=== PATIENT | female | born 1975 | race Caucasian/White ===

== ENCOUNTER 2018-12-31 13:10 | Outpatient (CLI) | payer MEDICAID ==
[2018-12-31 13:46] LABS: WHITE BLOOD COUNT 8.1 10^3/ul (4.8-10.8)
[2018-12-31 13:46] LABS: ADD MAN DIFF? NO; BASOPHILS % 0.5 % (0.0-2.0); EOSINOPHILS # 0.2 10^3/ul (0.0-0.5); EOSINOPHILS % 1.8 % (0.0-7.0); HEMATOCRIT 37.6 % (37.0-47.0); LYMPHOCYTES # 1.8 10^3/ul (0.8-2.9); LYMPHOCYTES % 22.5 % (15.0-51.0); MEAN CORPUSCULAR HEMOGLOBIN 30.4 pg (29.0-33.0); MEAN CORPUSCULAR HGB CONC 34.6 g/dl (32.0-37.0); MEAN CORPUSCULAR VOLUME 88.1 fl (82.0-101.0); MEAN PLATELET VOLUME 10.6 fl (7.4-10.4); MONOCYTE # 0.5 10^3/ul (0.3-0.9); MONOCYTES % 5.8 % (0.0-11.0); NEUTROPHIL # 5.6 10^3/ul (1.6-7.5); NEUTROPHILS % 68.7 % (39.0-77.0); PLATELET COUNT 222 10^3/UL (140-415); RED BLOOD COUNT 4.27 10^6/ul (4.20-5.40); RED CELL DISTRIBUTION WIDTH 12.9 % (11.5-14.5)
[2018-12-31 14:07] LABS: ALANINE AMINOTRANSFERASE 20 IU/L (13-69); ALBUMIN 3.9 g/dl (3.3-4.9); ALBUMIN/GLOBULIN RATIO 1.02; ALKALINE PHOSPHATASE 228 IU/L (42-121); ANION GAP 10 (5-13); ASPARTATE AMINO TRANSFERASE 27 IU/L (15-46); BILIRUBIN,INDIRECT 0.5 mg/dl (0-1.1); BILIRUBIN,TOTAL 0.5 mg/dl (0.2-1.3); BLOOD UREA NITROGEN 12 mg/dl (7-20); CALCIUM 9.7 mg/dl (8.4-10.2); CARBON DIOXIDE 22 mmol/L (21-31); CHLORIDE 105 mmol/L (97-110); CREATININE 0.63 mg/dl (0.44-1.00); Estimated GFR > 60 mL/min (>60); GLUCOSE 81 mg/dl (70-220); POTASSIUM 4.1 mmol/L (3.5-5.1); SODIUM 137 mmol/L (135-144); TOTAL PROTEIN 7.7 g/dl (6.1-8.1); URIC ACID 5.7 mg/dl (3.1-7.9)
[2018-12-31 14:11] LABS: INR 0.89; PROTIME 12.1 Sec (11.9-14.9); PT RATIO 0.9
[2018-12-31 14:12] LABS: PARTIAL THROMBOPLASTIN TIME 28.3 Sec (23.0-35.0)
[2018-12-31 14:22] LABS: ADD UMIC YES; UR ASCORBIC ACID NEGATIVE (NEGATIVE); UR BACTERIA FEW /HPF (NONE SEEN); UR BILIRUBIN (Dip) NEGATIVE (NEGATIVE); UR BLOOD (Dip) NEGATIVE (NEGATIVE); UR CLARITY CLOUDY (CLEAR); UR COLOR YELLOW (YELLOW); UR GLUCOSE (Dip) NEGATIVE (NEGATIVE); UR KETONES (Dip) NEGATIVE (NEGATIVE); UR LEUKOCYTE ESTERASE (Dip) 3+ Leu/ul (NEGATIVE); UR NITRITE (Dip) NEGATIVE (NEGATIVE); UR RBC 7 /HPF (0-5); UR SPECIFIC GRAVITY (Dip) 1.021 (1.003-1.030); UR SQUAMOUS EPITHELIAL CELL MODERATE /HPF (FEW); UR TOTAL PROTEIN (Dip) NEGATIVE (NEGATIVE); UR UROBILINOGEN (Dip) NEGATIVE (NEGATIVE); UR WBC 22 /HPF (0-5)
== END 2018-12-31 15:30 | disposition home or self-care (01) ==
LOC: OBT 13:10 → L-D 13:11 → OBT 15:30
DX: O60.03 Preterm labor without delivery, third trimester (principal); O09.523 Supervision of elderly multigravida, third trimester; O13.9 Gestational [pregnancy-induced] hypertension without significant proteinuria, unspecified trimester; Z3A.33 33 weeks gestation of pregnancy
CPT/HCPCS: 76818; 80053; 81001; 84560; 85025; 85384; 85610; 85730

== ENCOUNTER 2019-01-04 12:39 | Inpatient (IN) | payer MEDICAID ==
[2019-01-04] MEDS: LACTATED RINGER'S 1,000 ML IV ×2 (14:54→22:17)
[2019-01-04] MEDS ORDERED: LABETALOL HCL 20MG INJ IV (15:00)
[2019-01-04 15:01] LABS: ADD UMIC YES; UR ASCORBIC ACID NEGATIVE (NEGATIVE); UR BACTERIA FEW /HPF (NONE SEEN); UR BILIRUBIN (Dip) NEGATIVE (NEGATIVE); UR BLOOD (Dip) NEGATIVE (NEGATIVE); UR CLARITY SLIGHTLY CLOUDY (CLEAR); UR COLOR YELLOW (YELLOW); UR GLUCOSE (Dip) NEGATIVE (NEGATIVE); UR KETONES (Dip) NEGATIVE (NEGATIVE); UR LEUKOCYTE ESTERASE (Dip) 3+ Leu/ul (NEGATIVE); UR NITRITE (Dip) NEGATIVE (NEGATIVE); UR RBC 6 /HPF (0-5); UR SQUAMOUS EPITHELIAL CELL MANY /HPF (FEW); UR TOTAL PROTEIN (Dip) NEGATIVE (NEGATIVE); UR UROBILINOGEN (Dip) NEGATIVE (NEGATIVE); UR WBC 5 /HPF (0-5)
[2019-01-04] MEDS: MAGNESIUM SULFATE 4 GM/100 ML 100 ML IV (15:05)
[2019-01-04 15:07] LABS: ADD MAN DIFF? NO
[2019-01-04 15:13] LABS: WHITE BLOOD COUNT 7.9 10^3/ul (4.8-10.8)
[2019-01-04 15:13] LABS: BASOPHILS % 0.5 % (0.0-2.0); EOSINOPHILS # 0.2 10^3/ul (0.0-0.5); EOSINOPHILS % 2.5 % (0.0-7.0); HEMATOCRIT 36.4 % (37.0-47.0); HEMOGLOBIN 12.3 g/dl (12.0-16.0); LYMPHOCYTES % 24.8 % (15.0-51.0); MEAN CORPUSCULAR HEMOGLOBIN 30.7 pg (29.0-33.0); MEAN CORPUSCULAR HGB CONC 33.8 g/dl (32.0-37.0); MEAN CORPUSCULAR VOLUME 90.8 fl (82.0-101.0); MEAN PLATELET VOLUME 11.4 fl (7.4-10.4); MONOCYTE # 0.5 10^3/ul (0.3-0.9); MONOCYTES % 5.8 % (0.0-11.0); NEUTROPHIL # 5.2 10^3/ul (1.6-7.5); NEUTROPHILS % 65.3 % (39.0-77.0); PLATELET COUNT 208 10^3/UL (140-415); RED BLOOD COUNT 4.01 10^6/ul (4.20-5.40)
[2019-01-04 15:33] LABS: MAGNESIUM 1.8 mg/dl (1.7-2.5)
[2019-01-04 15:41] LABS: URIC ACID 4.9 mg/dl (3.1-7.9)
[2019-01-04] MEDS: MAGNESIUM SULFATE 20 GM/500 ML 500 ML IV (15:52)
[2019-01-04] MEDS: BETAMET NA PHOS/AC(6 MG/ML) 2 ML INJ SYG IM (16:12)
[2019-01-04 17:19] LABS: INR 0.85; PROTIME 11.7 Sec (11.9-14.9); PT RATIO 0.9
[2019-01-04 17:20] LABS: PARTIAL THROMBOPLASTIN TIME 27.5 Sec (23.0-35.0)
[2019-01-04 17:22] LABS: ALANINE AMINOTRANSFERASE 26 IU/L (13-69); ALBUMIN 3.3 g/dl (3.3-4.9); ALKALINE PHOSPHATASE 197 IU/L (42-121); ANION GAP 9 (5-13); ASPARTATE AMINO TRANSFERASE 24 IU/L (15-46); BILIRUBIN,INDIRECT 0.3 mg/dl (0-1.1); BILIRUBIN,TOTAL 0.3 mg/dl (0.2-1.3); BLOOD UREA NITROGEN 12 mg/dl (7-20); CALCIUM 9.4 mg/dl (8.4-10.2); CARBON DIOXIDE 22 mmol/L (21-31); CHLORIDE 108 mmol/L (97-110); CREATININE 0.49 mg/dl (0.44-1.00); Estimated GFR > 60 mL/min (>60); GLUCOSE 68 mg/dl (70-220); POTASSIUM 4.3 mmol/L (3.5-5.1); SODIUM 139 mmol/L (135-144); TOTAL PROTEIN 6.3 g/dl (6.1-8.1)
[2019-01-05] MEDS: MAGNESIUM SULFATE 20 GM/500 ML 500 ML IV ×2 (00:12→11:27)
[2019-01-05 01:24] LABS: MAGNESIUM 5.3 mg/dl (1.7-2.5)
[2019-01-05 01:43] LABS: HEMOGLOBIN A1C 5.4 % (0-5.9)
[2019-01-05 06:27] LABS: ADD MAN DIFF? NO
[2019-01-05 06:41] LABS: BASOPHILS % 0.3 % (0.0-2.0); HEMATOCRIT 35.5 % (37.0-47.0); HEMOGLOBIN 12.1 g/dl (12.0-16.0); LYMPHOCYTES # 1.1 10^3/ul (0.8-2.9); LYMPHOCYTES % 14.6 % (15.0-51.0); MEAN CORPUSCULAR HEMOGLOBIN 30.9 pg (29.0-33.0); MEAN CORPUSCULAR HGB CONC 34.1 g/dl (32.0-37.0); MEAN CORPUSCULAR VOLUME 90.8 fl (82.0-101.0); MEAN PLATELET VOLUME 10.9 fl (7.4-10.4); MONOCYTE # 0.3 10^3/ul (0.3-0.9); MONOCYTES % 3.6 % (0.0-11.0); NEUTROPHIL # 6.1 10^3/ul (1.6-7.5); NEUTROPHILS % 80.3 % (39.0-77.0); PLATELET COUNT 222 10^3/UL (140-415); RED BLOOD COUNT 3.91 10^6/ul (4.20-5.40); RED CELL DISTRIBUTION WIDTH 12.9 % (11.5-14.5)
[2019-01-05 06:41] LABS: WHITE BLOOD COUNT 7.5 10^3/ul (4.8-10.8)
[2019-01-05 06:45] LABS: ADD UMIC YES; UR ASCORBIC ACID NEGATIVE (NEGATIVE); UR BACTERIA FEW /HPF (NONE SEEN); UR BILIRUBIN (Dip) NEGATIVE (NEGATIVE); UR BLOOD (Dip) 1+ mg/dL (NEGATIVE); UR CLARITY CLEAR (CLEAR); UR COLOR STRAW (YELLOW); UR GLUCOSE (Dip) 1+ mg/dL (NEGATIVE); UR KETONES (Dip) TRACE mg/dL (NEGATIVE); UR LEUKOCYTE ESTERASE (Dip) 1+ Leu/ul (NEGATIVE); UR MUCUS FEW /HPF (NONE SEEN); UR NITRITE (Dip) NEGATIVE (NEGATIVE); UR RBC 1 /HPF (0-5); UR SPECIFIC GRAVITY (Dip) 1.009 (1.003-1.030); UR SQUAMOUS EPITHELIAL CELL FEW /HPF (FEW); UR TOTAL PROTEIN (Dip) NEGATIVE (NEGATIVE); UR UROBILINOGEN (Dip) NEGATIVE (NEGATIVE); UR WBC 2 /HPF (0-5)
[2019-01-05 06:56] LABS: PARTIAL THROMBOPLASTIN TIME 25.6 Sec (23.0-35.0)
[2019-01-05 07:12] LABS: ALANINE AMINOTRANSFERASE 21 IU/L (13-69); ALBUMIN 3.5 g/dl (3.3-4.9); ALBUMIN/GLOBULIN RATIO 1.02; ALKALINE PHOSPHATASE 225 IU/L (42-121); ANION GAP 10 (5-13); ASPARTATE AMINO TRANSFERASE 24 IU/L (15-46); BILIRUBIN,INDIRECT 0.3 mg/dl (0-1.1); BILIRUBIN,TOTAL 0.3 mg/dl (0.2-1.3); BLOOD UREA NITROGEN 10 mg/dl (7-20); CALCIUM 7.3 mg/dl (8.4-10.2); CARBON DIOXIDE 22 mmol/L (21-31); CHLORIDE 104 mmol/L (97-110); CREATININE 0.71 mg/dl (0.44-1.00); Estimated GFR > 60 mL/min (>60); GLUCOSE 152 mg/dl (70-220); SODIUM 136 mmol/L (135-144); TOTAL PROTEIN 6.9 g/dl (6.1-8.1); URIC ACID 5.9 mg/dl (3.1-7.9)
[2019-01-05 07:13] LABS: MAGNESIUM 5.6 mg/dl (1.7-2.5)
[2019-01-05] MEDS: ACETAMINOPHEN 325 MG TAB PO (09:47)
[2019-01-05] MEDS: FERROUS SULFATE (EC) 325 MG TAB PO (09:47)
[2019-01-05] MEDS: PRENATAL VITAMIN PO (09:47)
[2019-01-05] MEDS: LACTATED RINGER'S 1,000 ML IV (11:27)
[2019-01-05 13:06] LABS: MAGNESIUM 5.1 mg/dl (1.7-2.5)
[2019-01-05] MEDS: BETAMET NA PHOS/AC(6 MG/ML) 2 ML INJ SYG IM (16:03)
[2019-01-05] MEDS ORDERED: DEXTROSE 50% 50 ML SYRINGE IV ×2 (21:00)
[2019-01-05] MEDS ORDERED: GLUCAGON 1 MG INJ IM (21:00)
[2019-01-05] MEDS ORDERED: GLUCOSE GEL 15 GRAM TUBE BUCCAL (21:00)
[2019-01-05] MEDS ORDERED: GLUCOSE GEL 15 GRAM TUBE PO ×2 (21:00)
[2019-01-05] MEDS: INSULIN REGULAR, HUMAN 100 UNIT/1 ML 3ML VIAL SC (21:22)
[2019-01-06] MEDS: FERROUS SULFATE (EC) 325 MG TAB PO (09:55)
[2019-01-06] MEDS: PRENATAL VITAMIN PO (09:55)
[2019-01-06 19:21] LABS: COLLECTION PERIOD 24 hrs
[2019-01-06 19:54] LABS: COLLECTION PERIOD 24 hrs; SCRET 0.71 mg/dl (0.44-1.00)
[2019-01-06 19:55] LABS: CREATININE,URINE RANDOM 52.52 mg/dl (20-320); VOLUME 2200 ml/24hrs; VOLUME 2200 mls
== END 2019-01-06 22:00 | disposition home or self-care (01) | DRG 833 ==
LOC: OBT 12:39 → L-D 12:42 → OBT 12:50 → L-D 12:50
DX: O13.3 Gestational [pregnancy-induced] hypertension without significant proteinuria, third trimester (principal); O36.5930 Maternal care for other known or suspected poor fetal growth, third trimester, not applicable or unspecified; O09.523 Supervision of elderly multigravida, third trimester; Z3A.33 33 weeks gestation of pregnancy
CPT/HCPCS: 76815; 76817; 76818; 80053; 81001; 82575; 82962; 83036; 83735; 84156; 84560; 85025; 85384; 85610; 85730; 86850; 86900; 86901

== ENCOUNTER 2019-01-21 13:00 | Outpatient (CLI) | payer MEDICAID ==
[2019-01-21 14:09] LABS: ADD MAN DIFF? NO
[2019-01-21 14:11] LABS: BASOPHILS % 0.4 % (0.0-2.0); EOSINOPHILS # 0.2 10^3/ul (0.0-0.5); EOSINOPHILS % 2.6 % (0.0-7.0); HEMATOCRIT 37.5 % (37.0-47.0); HEMOGLOBIN 12.7 g/dl (12.0-16.0); LYMPHOCYTES # 2.2 10^3/ul (0.8-2.9); LYMPHOCYTES % 29.6 % (15.0-51.0); MEAN CORPUSCULAR HEMOGLOBIN 31.1 pg (29.0-33.0); MEAN CORPUSCULAR HGB CONC 33.9 g/dl (32.0-37.0); MEAN CORPUSCULAR VOLUME 91.7 fl (82.0-101.0); MEAN PLATELET VOLUME 10.6 fl (7.4-10.4); MONOCYTE # 0.5 10^3/ul (0.3-0.9); MONOCYTES % 7.3 % (0.0-11.0); NEUTROPHIL # 4.3 10^3/ul (1.6-7.5); NEUTROPHILS % 59.3 % (39.0-77.0); PLATELET COUNT 185 10^3/UL (140-415); RED BLOOD COUNT 4.09 10^6/ul (4.20-5.40); RED CELL DISTRIBUTION WIDTH 12.8 % (11.5-14.5)
[2019-01-21 14:11] LABS: WHITE BLOOD COUNT 7.3 10^3/ul (4.8-10.8)
[2019-01-21 14:28] LABS: ALANINE AMINOTRANSFERASE 22 IU/L (13-69); ALBUMIN 3.5 g/dl (3.3-4.9); ALBUMIN/GLOBULIN RATIO 1.16; ALKALINE PHOSPHATASE 229 IU/L (42-121); ANION GAP 9 (5-13); ASPARTATE AMINO TRANSFERASE 19 IU/L (15-46); BILIRUBIN,INDIRECT 0.3 mg/dl (0-1.1); BILIRUBIN,TOTAL 0.3 mg/dl (0.2-1.3); BLOOD UREA NITROGEN 14 mg/dl (7-20); CALCIUM 9.1 mg/dl (8.4-10.2); CARBON DIOXIDE 23 mmol/L (21-31); CHLORIDE 105 mmol/L (97-110); CREATININE 0.64 mg/dl (0.44-1.00); Estimated GFR > 60 mL/min (>60); GLUCOSE 80 mg/dl (70-220); POTASSIUM 4.1 mmol/L (3.5-5.1); SODIUM 137 mmol/L (135-144); TOTAL PROTEIN 6.5 g/dl (6.1-8.1); URIC ACID 6.1 mg/dl (3.1-7.9)
[2019-01-21 14:30] LABS: ADD UMIC YES; UR ASCORBIC ACID NEGATIVE (NEGATIVE); UR BACTERIA FEW /HPF (NONE SEEN); UR BILIRUBIN (Dip) NEGATIVE (NEGATIVE); UR BLOOD (Dip) NEGATIVE (NEGATIVE); UR CLARITY SLIGHTLY CLOUDY (CLEAR); UR COLOR YELLOW (YELLOW); UR GLUCOSE (Dip) NEGATIVE (NEGATIVE); UR KETONES (Dip) NEGATIVE (NEGATIVE); UR LEUKOCYTE ESTERASE (Dip) 3+ Leu/ul (NEGATIVE); UR MUCUS FEW /HPF (NONE SEEN); UR NITRITE (Dip) NEGATIVE (NEGATIVE); UR RBC 4 /HPF (0-5); UR SPECIFIC GRAVITY (Dip) 1.023 (1.003-1.030); UR SQUAMOUS EPITHELIAL CELL FEW /HPF (FEW); UR TOTAL PROTEIN (Dip) NEGATIVE (NEGATIVE); UR UROBILINOGEN (Dip) NEGATIVE (NEGATIVE); UR WBC 11 /HPF (0-5)
[2019-01-21 14:31] LABS: INR 0.84; PROTIME 11.6 Sec (11.9-14.9); PT RATIO 0.9
[2019-01-21 14:32] LABS: PARTIAL THROMBOPLASTIN TIME 26.1 Sec (23.0-35.0)
== END 2019-01-21 15:35 | disposition home or self-care (01) ==
LOC: OBT 13:00 → L-D 13:00 → OBT 15:35
DX: O24.419 Gestational diabetes mellitus in pregnancy, unspecified control (principal); O13.3 Gestational [pregnancy-induced] hypertension without significant proteinuria, third trimester; O36.5930 Maternal care for other known or suspected poor fetal growth, third trimester, not applicable or unspecified; O23.43 Unspecified infection of urinary tract in pregnancy, third trimester; O09.523 Supervision of elderly multigravida, third trimester; Z3A.36 36 weeks gestation of pregnancy
CPT/HCPCS: 76818; 80053; 81001; 84560; 85025; 85384; 85610; 85730; 87086

== ENCOUNTER 2019-01-27 14:10 | Inpatient (IN) | payer MEDICAID ==
[~2019-01-27 14:10] MED LIST: EPHEDrine 25 MG/5 ML SYG; OXYTOCIN 30 UNITS/LR 500 ML BAG IV; PHENYLephrine (100 MCG/ML) 10ML SYG
[2019-01-27 15:53] LABS: ADD MAN DIFF? NO
[2019-01-27 15:54] LABS: BASOPHILS % 0.3 % (0.0-2.0); EOSINOPHILS # 0.1 10^3/ul (0.0-0.5); EOSINOPHILS % 1.5 % (0.0-7.0); HEMATOCRIT 36.9 % (37.0-47.0); HEMOGLOBIN 12.5 g/dl (12.0-16.0); LYMPHOCYTES # 1.8 10^3/ul (0.8-2.9); LYMPHOCYTES % 25.1 % (15.0-51.0); MEAN CORPUSCULAR HEMOGLOBIN 30.9 pg (29.0-33.0); MEAN CORPUSCULAR HGB CONC 33.9 g/dl (32.0-37.0); MEAN CORPUSCULAR VOLUME 91.3 fl (82.0-101.0); MEAN PLATELET VOLUME 10.6 fl (7.4-10.4); MONOCYTE # 0.5 10^3/ul (0.3-0.9); MONOCYTES % 6.5 % (0.0-11.0); NEUTROPHIL # 4.8 10^3/ul (1.6-7.5); NEUTROPHILS % 65.9 % (39.0-77.0); PLATELET COUNT 168 10^3/UL (140-415); RED BLOOD COUNT 4.04 10^6/ul (4.20-5.40); RED CELL DISTRIBUTION WIDTH 13.2 % (11.5-14.5)
[2019-01-27 15:54] LABS: WHITE BLOOD COUNT 7.3 10^3/ul (4.8-10.8)
[2019-01-27 16:12] LABS: ALANINE AMINOTRANSFERASE 29 IU/L (13-69); ALBUMIN 3.2 g/dl (3.3-4.9); ALBUMIN/GLOBULIN RATIO 0.96; ALKALINE PHOSPHATASE 226 IU/L (42-121); ANION GAP 4 (5-13); ASPARTATE AMINO TRANSFERASE 21 IU/L (15-46); BILIRUBIN,INDIRECT 0.3 mg/dl (0-1.1); BILIRUBIN,TOTAL 0.3 mg/dl (0.2-1.3); BLOOD UREA NITROGEN 15 mg/dl (7-20); CALCIUM 9.5 mg/dl (8.4-10.2); CARBON DIOXIDE 24 mmol/L (21-31); CHLORIDE 107 mmol/L (97-110); CREATININE 0.79 mg/dl (0.44-1.00); Estimated GFR > 60 mL/min (>60); GLUCOSE 96 mg/dl (70-220); POTASSIUM 4.3 mmol/L (3.5-5.1); SODIUM 135 mmol/L (135-144); TOTAL PROTEIN 6.5 g/dl (6.1-8.1); URIC ACID 6.3 mg/dl (3.1-7.9)
[2019-01-27 16:14] LABS: INR 0.88; PT RATIO 0.9
[2019-01-27 16:15] LABS: PARTIAL THROMBOPLASTIN TIME 26.7 Sec (23.0-35.0)
[2019-01-27 16:17] LABS: ADD UMIC YES; UR ASCORBIC ACID NEGATIVE (NEGATIVE); UR BACTERIA FEW /HPF (NONE SEEN); UR BILIRUBIN (Dip) NEGATIVE (NEGATIVE); UR BLOOD (Dip) NEGATIVE (NEGATIVE); UR CLARITY SLIGHTLY CLOUDY (CLEAR); UR COLOR YELLOW (YELLOW); UR GLUCOSE (Dip) NEGATIVE (NEGATIVE); UR KETONES (Dip) NEGATIVE (NEGATIVE); UR LEUKOCYTE ESTERASE (Dip) 3+ Leu/ul (NEGATIVE); UR MUCUS MODERATE /HPF (NONE SEEN); UR NITRITE (Dip) NEGATIVE (NEGATIVE); UR RBC 3 /HPF (0-5); UR SPECIFIC GRAVITY (Dip) 1.025 (1.003-1.030); UR SQUAMOUS EPITHELIAL CELL FEW /HPF (FEW); UR TOTAL PROTEIN (Dip) NEGATIVE (NEGATIVE); UR UROBILINOGEN (Dip) 1+ mg/dL (NEGATIVE); UR WBC 11 /HPF (0-5)
[2019-01-27] MEDS ORDERED: MAGNESIUM SULFATE 20 GM/500 ML 500 ML IV (18:05)
[2019-01-27] MEDS ORDERED: MAGNESIUM SULFATE 4 GM/100 ML 100 ML (18:05)
[2019-01-27] MEDS ORDERED: MAGNESIUM SULFATE 4 GM/100 ML 100 ML IVPB (18:15)
[2019-01-27] MEDS: LACTATED RINGER'S 1,000 ML IV (18:21)
[2019-01-27] MEDS ORDERED: LABETALOL HCL 20MG INJ (18:25)
[2019-01-27] MEDS: LABETALOL HCL 20MG INJ IV (18:29)
[2019-01-27] MEDS ORDERED: CEFAZOLIN 2 GM/50 ML (PMX) 50 ML IVPB (18:30)
[2019-01-27] MEDS ORDERED: OXYTOCIN 30 UNITS/LR 500 ML IV ×2 (18:30)
[2019-01-27] MEDS ORDERED: MAGNESIUM SULFATE 2 GM/50 ML 50 ML IVPB (18:30)
[2019-01-27] MEDS ORDERED: hydrALAzine 20 MG INJ IV (18:30)
[2019-01-27] MEDS ORDERED: CARBOPROST 250 MCG INJ IM (18:30)
[2019-01-27] MEDS ORDERED: LABETALOL HCL 20MG INJ IV ×2 (18:30)
[2019-01-27] MEDS ORDERED: MISOPROSTOL 200 MCG TAB PR (18:30)
[2019-01-27] MEDS ORDERED: METHYLERGONOVINE 0.2 MG INJ IM (18:30)
[2019-01-27] MEDS: MAGNESIUM SULFATE 4 GM/100 ML 100 ML IV (18:35)
[2019-01-27] MEDS: MAGNESIUM SULFATE 20 GM/500 ML 500 ML IV (18:38)
[2019-01-27 18:53] LABS: GLUCOSE 72 mg/dl (70-220)
[2019-01-27 18:58] LABS: HEPATITIS B SURFACE ANTIGEN NEGATIVE (NEGATIVE)
[2019-01-27] MEDS ORDERED: morphine SULFATE/PF (10 MG/10 ML) INJ (21:11)
[2019-01-27] MEDS ORDERED: METOCLOPRAMIDE 10 MG INJ IV (21:30)
[2019-01-27] MEDS ORDERED: DIPHENHYDRAMINE 50 MG INJ IV ×2 (21:30)
[2019-01-27] MEDS ORDERED: NALOXONE (0.4 MG/ML) INJ IV (21:30)
[2019-01-27] MEDS ORDERED: FENTAnyl 50 MCG/ML VIAL IV ×3 (21:30)
[2019-01-27] MEDS ORDERED: ALBUTEROL 0.083% (NEB) 2.5 MG/3 ML AMP HHN (21:30)
[2019-01-27] MEDS ORDERED: KETOROLAC 30 MG INJ IV ×2 (21:30)
[2019-01-27] MEDS ORDERED: ONDANSETRON 4 MG INJ IV ×2 (21:30)
[2019-01-27] MEDS ORDERED: HYDROmorphONE 1 MG/5 ML IV SYRINGE IV ×3 (21:30)
[2019-01-27] MEDS ORDERED: HYDROmorphONE 0.5 MG/0.5 ML SYG IV ×2 (21:30)
[2019-01-27] MEDS: CITRIC ACID/NA CITRATE 30 ML CUP PO (22:09)
[2019-01-27] MEDS: METOCLOPRAMIDE 10 MG INJ IV (22:09)
[2019-01-27] MEDS: ONDANSETRON 4 MG INJ IV (22:10)
[2019-01-28 01:10] LABS: MAGNESIUM 3.5 mg/dl (1.7-2.5)
[2019-01-28] MEDS ORDERED: OXYTOCIN 30 UNITS/LR 500 ML IV (01:30)
[2019-01-28] MEDS ORDERED: CARBOPROST 250 MCG INJ IM (01:30)
[2019-01-28] MEDS ORDERED: MAGNESIUM SULFATE 4 GM/100 ML 100 ML IV (01:30)
[2019-01-28] MEDS ORDERED: NACL 0.9% 3 ML SYG IV ×2 (01:30)
[2019-01-28] MEDS ORDERED: CA GLUCONATE (GM) 10% 10ML INJ IV (01:30)
[2019-01-28] MEDS ORDERED: LANOLIN HPA 1 PKT TOP (01:30)
[2019-01-28] MEDS ORDERED: MISOPROSTOL 200 MCG TAB PR (01:30)
[2019-01-28] MEDS: MAGNESIUM SULFATE 20 GM/500 ML 500 ML IV ×3 (01:51→17:11)
[2019-01-28] MEDS: OXYTOCIN 30 UNITS/LR 500 ML IV (02:20)
[2019-01-28] MEDS: IBUPROFEN 600 MG TAB PO (02:20)
[2019-01-28] MEDS ORDERED: DIPHENHYDRAMINE 50 MG INJ IV ×2 (05:30→09:00)
[2019-01-28] MEDS ORDERED: ONDANSETRON 4 MG INJ IV ×2 (05:30→09:00)
[2019-01-28 07:51] LABS: MAGNESIUM 5.5 mg/dl (1.7-2.5)
[2019-01-28] MEDS ORDERED: HYDROmorphONE 0.5 MG/0.5 ML SYG IV ×2 (09:00)
[2019-01-28] MEDS ORDERED: ZOLPIDEM 5 MG TAB PO (09:00)
[2019-01-28] MEDS ORDERED: KETOROLAC 30 MG INJ IV (09:00)
[2019-01-28] MEDS ORDERED: NALOXONE (0.4 MG/ML) INJ IV (09:00)
[2019-01-28 12:03] LABS: ADD MAN DIFF? NO
[2019-01-28 12:07] LABS: WHITE BLOOD COUNT 7.9 10^3/ul (4.8-10.8)
[2019-01-28 12:07] LABS: EOSINOPHILS % 0.8 % (0.0-7.0); HEMATOCRIT 34.7 % (37.0-47.0); HEMOGLOBIN 11.9 g/dl (12.0-16.0); LYMPHOCYTES % 16.4 % (15.0-51.0); MEAN CORPUSCULAR HEMOGLOBIN 31.4 pg (29.0-33.0); MEAN CORPUSCULAR HGB CONC 34.3 g/dl (32.0-37.0); MEAN CORPUSCULAR VOLUME 91.6 fl (82.0-101.0); MEAN PLATELET VOLUME 10.4 fl (7.4-10.4); MONOCYTES % 3.8 % (0.0-11.0); NEUTROPHILS % 78.2 % (39.0-77.0); PLATELET COUNT 159 10^3/UL (140-415); RED BLOOD COUNT 3.79 10^6/ul (4.20-5.40); RED CELL DISTRIBUTION WIDTH 12.9 % (11.5-14.5)
[2019-01-28 12:08] LABS: BASOPHILS % 0.3 % (0.0-2.0); EOSINOPHILS # 0.1 10^3/ul (0.0-0.5); LYMPHOCYTES # 1.3 10^3/ul (0.8-2.9); MONOCYTE # 0.3 10^3/ul (0.3-0.9); NEUTROPHIL # 6.2 10^3/ul (1.6-7.5)
[2019-01-28] MEDS: LACTATED RINGER'S 1,000 ML IV (12:22)
[2019-01-28 12:23] LABS: MAGNESIUM 5.6 mg/dl (1.7-2.5)
[2019-01-28] MEDS: KETOROLAC 30 MG INJ IV ×2 (16:44→22:44)
[2019-01-28 18:36] LABS: MAGNESIUM 5.9 mg/dl (1.7-2.5)
[2019-01-28 19:59] LABS: RAPID PLASMA REAGIN NONREACTIVE (NR)
[2019-01-28] MEDS ORDERED: MAGNESIUM SULFATE 20 GM/500 ML 500 ML IV (23:00)
[2019-01-29] MEDS: LACTATED RINGER'S 1,000 ML IV ×2 (00:50→14:10)
[2019-01-29] MEDS: HYDROCODONE/APAP (5/325) TAB PO ×4 (02:35→22:48)
[2019-01-30] MEDS: HYDROCODONE/APAP (5/325) TAB PO ×2 (07:39→16:19)
[2019-01-30] MEDS: BISACODYL 10 MG SUPP PR (11:47)
[2019-01-31] MEDS ORDERED: IBUPROFEN 600 MG TAB PO (06:00)
[2019-02-03] MEDS ORDERED: IBUPROFEN 600 MG TAB PO (06:00)
== END 2019-01-30 18:35 | disposition home or self-care (01) | DRG 788 ==
LOC: OBT 14:10 → L-D 01-28 01:11 → PP1 01-28 02:14 → L-D 14:16 → OBT 18:05 → L-D 18:06
PROC: 10D00Z1 Extraction of Products of Conception, Low, Open Approach (ICD-10-PCS; principal; 2019-01-28)
DX: O14.14 Severe pre-eclampsia complicating childbirth (principal); O24.420 Gestational diabetes mellitus in childbirth, diet controlled; O34.211 Maternal care for low transverse scar from previous cesarean delivery; Z3A.38 38 weeks gestation of pregnancy; Z37.0 Single live birth
CPT/HCPCS: 76818; 80053; 81001; 82947; 83735; 84560; 85025; 85384; 85610; 85730; 86592; 86850; 86900; 86901; 87340; 99464